=== PATIENT | female | born 1950 | race African-American/Black ===

== ENCOUNTER 2020-03-09 05:42 | Inpatient (IN) ==
[2020-03-03 11:35] LABS: Basophils % 0.5 % (0.0-0.8); Eosinophils # 0.2 10*3/uL (0.0-0.87); Eosinophils % 3.7 % (0.00-10.9); Hematocrit 37.4 VOL% (35.7-47.0); Hemoglobin 11.8 GM/DL (12.0-16.0); Immature Granulocytes % 0.7 %; Immature Granulocytes Absolute 0.04 #; Lymphocytes # 1.4 10*3/uL (1.4-4.0); Lymphocytes % 25.2 % (21.3-54.2); Mean Corpuscular HGB Conc 31.6 GM/DL (32-36); Mean Platelet Volume 10.8 FL (9.6-12.0); Monocytes % 10.3 % (1.7-12.7); Neutrophils % 59.6 % (38.7-73.9); Platelet Count 194 T/CUMM (130-400); Red Cell Distribution Width 14.3 % (9.3-17.3); White Blood Count 5.6 T/CUMM (4-12)
[2020-03-03 12:00] LABS: Calcium 9.3 MG/DL (8.5-10.1); Osmolality,Calculated 279.4 MOS/KG (273-304); Potassium 3.7 MMOL/L (3.5-5.1)
[2020-03-09] MEDS ORDERED: ceFAZolin 2,000 MG in PREMIX 1 EACH IV ONE (05:43)
[2020-03-09] MEDS ORDERED: fentaNYL 100 MCG/2 ML VIAL ONE ×3 (06:06→09:11)
[2020-03-09] MEDS ORDERED: propofoL 200 MG/20 ML VIAL IV ONE (06:06)
[2020-03-09] MEDS ORDERED: MIDAZOLAM 2 MG/2 ML VIAL ONE (06:06)
[2020-03-09] MEDS ORDERED: ROCURONIUM 50 MG/5 ML VIAL IV ONE (06:07)
[2020-03-09] MEDS ORDERED: LIDOCAINE 2% 5 ML VIAL ONE (06:07)
[2020-03-09] MEDS ORDERED: DIAZEPAM 5 MG TABLET PO ONE (06:20)
[2020-03-09] MEDS ORDERED: FAMOTIDINE 20 MG TABLET PO ONE (06:20)
[2020-03-09] MEDS ORDERED: DEXAMETHASONE 4 MG/1 ML VIAL ONE (06:21)
[2020-03-09] MEDS ORDERED: ROPIVACAINE 0.5% 30 ML VIAL ONE (06:21)
[2020-03-09] MEDS ORDERED: LIDOCAINE 1% 5 ML VIAL ONE (06:21)
[2020-03-09] MEDS: LACTATED RINGERS 1,000 ML IV SCH ×3 (06:35→21:22)
[2020-03-09] MEDS ORDERED: BACITRACIN OINT 0.9 GM PACK TOP ONE (06:38)
[2020-03-09] MEDS ORDERED: fentaNYL 250 MCG/5 ML VIAL ONE (07:21)
[2020-03-09] MEDS ORDERED: PHENYLEPHRINE 10 MG/1 ML VIAL IV ONE (07:42)
[2020-03-09] MEDS ORDERED: GENTAMICIN 80 MG/2 ML VIAL ONE (08:10)
[2020-03-09] MEDS ORDERED: TRANEXAMIC ACID 1,000 MG/10 ML VIAL ONE (08:33)
[2020-03-09] MEDS ORDERED: SEVOFLURANE 1 UNIT/15 MINUTE INH ONE (09:15)
[2020-03-09] MEDS ORDERED: ZALEPLON 5 MG CAPSULE PO PRN (10:02)
[2020-03-09] MEDS ORDERED: ONDANSETRON 4 MG/2 ML VIAL IV PRN (10:02)
[2020-03-09] MEDS ORDERED: diphenhydrAMINE CAP 25 MG CAPSULE PO PRN (10:02)
[2020-03-09] MEDS ORDERED: MAGNESIUM HYDROXIDE SUSP 30 ML UDCUP PO PRN (10:02)
[2020-03-09] MEDS ORDERED: MORPHINE 4 MG/1 ML VIAL IV PRN ×2 (10:02)
[2020-03-09] MEDS ORDERED: PROMETHAZINE 25 MG/1 ML VIAL IM PRN (10:02)
[2020-03-09] MEDS: KETOROLAC 15 MG/1 ML VIAL IV SCH ×2 (15:22→21:22)
[2020-03-09] MEDS: ceFAZolin 2,000 MG in PREMIX 1 EACH IV SCH (15:26)
[2020-03-09] MEDS: lisinopriL 20 MG TABLET PO SCH (17:31)
[2020-03-09] MEDS: DOCUSATE SODIUM 100 MG CAPSULE PO SCH (21:22)
[2020-03-10] MEDS: ceFAZolin 2,000 MG in PREMIX 1 EACH IV SCH (00:27)
[2020-03-10] MEDS: KETOROLAC 15 MG/1 ML VIAL IV SCH ×2 (03:50→10:48)
[2020-03-10] MEDS ORDERED: FONDAPARINUX 2.5 MG/0.5 ML SYRINGE SUBCUT SCH (05:00)
[2020-03-10 06:08] LABS: Basophils % 0.4 % (0.0-0.8); Eosinophils # 0.1 10*3/uL (0.0-0.87); Eosinophils % 0.8 % (0.00-10.9); Hematocrit 32.9 VOL% (35.7-47.0); Hemoglobin 10.5 GM/DL (12.0-16.0); Immature Granulocytes % 0.4 %; Immature Granulocytes Absolute 0.03 #; Lymphocytes # 1.3 10*3/uL (1.4-4.0); Lymphocytes % 17.3 % (21.3-54.2); Mean Corpuscular HGB Conc 31.9 GM/DL (32-36); Mean Corpuscular Volume 84.4 FL (87-102); Mean Platelet Volume 10.4 FL (9.6-12.0); Monocytes % 9.9 % (1.7-12.7); Neutrophils % 71.2 % (38.7-73.9); Platelet Count 179 T/CUMM (130-400); Red Cell Distribution Width 14.4 % (9.3-17.3); White Blood Count 7.3 T/CUMM (4-12)
[2020-03-10] MEDS ORDERED: LEVOTHYROXINE 88 MCG TABLET PO SCH (06:30)
[2020-03-10 06:33] LABS: Calcium 9.2 MG/DL (8.5-10.1); Osmolality,Calculated 277.5 MOS/KG (273-304); Potassium 4.1 MMOL/L (3.5-5.1)
[2020-03-10] MEDS: LACTATED RINGERS 1,000 ML IV SCH (07:51)
[2020-03-10] MEDS ORDERED: FLUTICASONE 50 MCG NASAL SPRAY 16 GM BOTTLE BOTH NARES SCH (09:00)
[2020-03-10] MEDS ORDERED: MULTIVITAMIN (BEROCCA) TABLET PO SCH (09:00)
[2020-03-10] MEDS ORDERED: lisinopriL 20 MG TABLET PO SCH (09:00)
[2020-03-10] MEDS ORDERED: hydroCHLOROthiazide 12.5 MG CAPSULE PO SCH (09:00)
[2020-03-10] MEDS: DOCUSATE SODIUM 100 MG CAPSULE PO SCH (10:48)
[2020-03-10] MEDS: lisinopriL 20 MG TABLET PO SCH (10:48)
[2020-03-10 11:53] VITALS: BP 139/65
== END 2020-03-10 15:00 | disposition home health service (06) | DRG 482 ==
LOC: N.OR 05:42 → N.SDSINP 05:44 → N.3E 12:53
PROVIDERS: ADMIT Orthopaedic Surgery; ATTEND Orthopaedic Surgery